=== PATIENT | male | born 1970 ===

== ENCOUNTER 2018-09-28 09:12 | Emergency (ER) | payer OTHER ==
[~2018-09-28] VITALS: Ht 172.7 cm; Wt 79.4 kg
[~2018-09-28 09:12] MED LIST: VYTORIN 10-20 M1 TAB PO; ZESTRIL10 M1 PO
[2018-09-28] MEDS ORDERED: PROBIOTIC1 EAC3 PO (09:43)
[2018-09-28] MEDS ORDERED: TUSSI PRES-B L120 M1 PO (13:18)
[2018-09-28] MEDS ORDERED: LEVAQUIN750 MG PO (13:18)
== END 2018-09-28 13:42 | disposition home or self-care (01) ==
LOC: ER 09:12
DX: R42 Dizziness and giddiness (principal); B34.9 Viral infection, unspecified